=== PATIENT | female | born 2000 | race Caucasian/White ===

== ENCOUNTER 2021-11-12 04:29 | Emergency (ER) | payer OTHER, SELFPAY ==
[2021-11-12 04:30] VITALS: BP 122/74; PULSE 133; RESP 24; TEMP 36.3; O2SAT 100
[2021-11-12 04:43] VITALS: PULSE 99; RESP 22; O2SAT 100
[2021-11-12 04:46] VITALS: PULSE 96; RESP 13; O2SAT 100
--- NOTE | 2021-11-12 04:54 | ED.GENADULT ---
HPI - General Adult General Chief complaint: Anxiety Stated complaint: anxiety attack, high heart rate, shakey, dizzy Time Seen by Provider: 11/12/21 04:44 History of Present Illness HPI narrative: 21-year-old female with history of anxiety presenting the emergency department for evaluation of an anxiety attack. Patient has been taking hydroxyzine intermittently for anxiety but was started on fluoxetine approximately a week ago. Patient states that this morning she woke up at 2 AM and was very panicked. Related Data Allergies Allergy/AdvReac Type Severity Reaction Status Date / Time cefdinir Allergy Intermediate Other Verified 11/12/21 04:38 amoxicillin Allergy Unknown Unknown Verified 11/12/21 04:38 Penicillins Allergy Unknown RASH Verified 11/12/21 04:38 Sulfa (Sulfonamide Allergy Unknown Unknown Verified 11/12/21 04:38 Antibiotics) Review of Systems Review of Systems: CONSTITUTIONAL: Denies fever, chills, or sweats. EYES: Denies visual changes, redness, or discharge. ENT: Denies rhinorrhea, congestion, sore throat, or otalgia. CARDIOVASCULAR: Denies chest pain, palpitations, or edema. RESPIRATORY: Shortness of breath GASTROINTESTINAL: Denies abdominal pain, nausea, vomiting, or diarrhea. GENITOURINARY: Denies dysuria or hematuria. SKIN: Denies rash or itching. MUSCULOSKELETAL: Denies back pain, joint pain, or myalgia. NEUROLOGIC: Denies headache, numbness, or weakness. PSYCHIATRIC: Anxiety PMFSH Past Medical History Medical History BMI 25.0-25.9,adult BMI 27.0-27.9,adult BMI 29.0-29.9,adult BMI 32.0-32.9,adult BMI 33.0-33.9,adult COVID-19 PANDAS (pediatric autoimmune neuropsychiatric disease associated with streptococcal infection) Family History Family History Father No problems noted. Mother Non-Hodgkins lymphoma Sibling No problems noted. Other Hypertension Social History Social History Smoking status: Never smoker Second hand tobacco smoke exposure: No Alcohol intake: never Substance use: never Substance use type: does not use Additional occupation/education comments: [employer] Gender identity (if verbalized by the patient): Female Exam Narrative: APPEARANCE: Well appearing, no pain, no distress, well-nourished. HEAD: normocephalic, atraumatic. EYES: PERRLA/EOMI, conjunctivae clear. NOSE: Normal no drainage NECK: Supple. No adenopathy, no masses. RESPIRATORY: Airway patent, respirations nonlabored. Clear to auscultation bilaterally, no rales, rhonchi, wheezing. CARDIOVASCULAR: Regular rate and rhythm without murmurs rubs or gallops. ABDOMINAL: Soft, nontender, nondistended, normal bowel sounds MUSCULOSKELETAL: Moves all extremities. Strength/ROM intact, No edema, No calf tenderness. NEURO: Alert. Cranial nerves II through XII intact. Grossly intact SKIN: Warm, dry. Normal Color Psychiatric: Very anxious Course Course Emergency Course: Patient felt improved with treatment. Patient was advised of close follow-up with her primary care physician regarding her continuing her fluoxetine. Patient was provided a small prescription of Ativan for home. Patient was comfortable to plan for discharge and follow-up. Vital Signs Vital signs: Vital Signs Temperature 97.3 F L 11/12/21 04:30 Pulse Rate 133 H 11/12/21 04:30 Respiratory Rate 24 H 11/12/21 04:30 Blood Pressure 122/74 11/12/21 04:30 Pulse Oximetry 100 11/12/21 04:30 Oxygen Delivery Room Air 11/12/21 04:30 Temperature 97.3 F L 11/12/21 04:30 Pulse Rate 82 11/12/21 05:53 Respiratory Rate 15 11/12/21 05:53 Blood Pressure 114/75 11/12/21 05:53 Pulse Oximetry 99 11/12/21 05:53 Oxygen Delivery Room Air 11/12/21 04:30 Medical Decision Making Vital Signs Vital Signs: Vital Signs [place]
[2021-11-12] MEDS: LORazepam INJ (*CRX) 2 MG/ML VIAL 1 MG IV PUSH (05:08)
[2021-11-12 05:11] VITALS: PULSE 86; RESP 10; O2SAT 100
[2021-11-12 05:53] VITALS: BP 114/75; PULSE 82; RESP 15; O2SAT 99
== END 2021-11-12 06:15 | disposition home or self-care (01) ==
PROVIDERS: Emergency Provider Emergency Medicine; PCP Family Medicine
DX: F41.9 Anxiety disorder, unspecified (principal); Z86.16 Personal history of COVID-19
CPT/HCPCS: 96374; 99284; J2060